=== PATIENT | female | born 1995 | race Caucasian/White ===

== ENCOUNTER 2018-02-20 18:19 | Emergency (ER) | payer OTHER ==
[2018-02-20 18:45] VITALS: BP 100/64
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
== END 2018-02-20 20:19 | disposition home or self-care (01) ==
LOC: UCCORT 18:19
DX: S80.12XA Contusion of left lower leg, initial encounter (principal); Y04.2XXA Assault by strike against or bumped into by another person, initial encounter; Y92.9 Unspecified place or not applicable; Z33.1 Pregnant state, incidental; F17.210 Nicotine dependence, cigarettes, uncomplicated
CPT/HCPCS: 84702; 99202; G0463